=== PATIENT | female | born 1955 | race Caucasian/White ===

== ENCOUNTER 2025-03-01 20:33 | Emergency (ER) | payer OTHER, SELFPAY ==
[2025-03-01 20:34] VITALS: BP 123/86; PULSE 80; RESP 17; TEMP 36.6; O2SAT 99
[2025-03-01 20:37] VITALS: BMI 24.5
--- NOTE | 2025-03-01 22:15 | EX.ED.VISEXT ---
HPI History of Present Illness HPI Narrative: 70-year-old female history of prior kidney stones. She was on a walking trail with her daughter a dog broke loose from another person ran up to her and bit her on her left thigh. She did not fall. This occurred around 2 PM today about 8 hours ago. Has been intermittently bleeding she noticed a significant bruise and wanted evaluated. She has had bilateral knee replacements years ago. She denies any other complaints. Chief Complaint: Bite Informant: patient Occured/Mechanism Mechanism/Context: Yes injury Comment: Dog bite left medial thigh. Onset/Context/Timing Onset: Today Context: Sudden Onset Timing: Continuous Quality of Pain: Aching Current Severity: Mild Maximum Severity: Mild Narrative Narrative: 70-year-old female was walking on a walking trail when a dog broke loose from its esthetician/owner and bit her on her left side. This occurred about 8 hours ago. She is unsure of her last tetanus shot. Is not on blood thinners. Is not diabetic. No other injuries she did not fall. Tetanus Immunization: >10 years Prior similar symptoms: No Recent Illness/Hospitalization: No ROS ROS ED ROS Narrative Denies recent illness. Constitutional Constitutional ED: Denies chills or fever(s) Eyes Eyes: Denies blurry vision ENT ENT ED: Denies ear pain Cardiovascular Cardiovascular: Denies chest pain Respiratory/Chest Respiratory/Chest: Denies cough or dyspnea Gastrointestinal Gastrointestinal: Denies abdominal pain, constipation or diarrhea Genitourinary Genitourinary ED: Denies dysuria or hematuria Musculoskeletal Musculoskeletal: Denies arthralgias or back pain Integumentary Denies abscess or Abrasions Neurologic Neurologic: Denies headache(s) Psychiatric Psychiatric: Denies anxiety or depression Endocrine Endocrinology: Denies polydipsia Hematologic/Lymphatic Hematologic/Lymphatic: Denies easy bleeding, easy bruising or lymphadenopathy Allergic/Immunologic Allergic/Immunologic ED: Denies mouth swelling, tongue swelling or urticaria [facility] Medical History Anxiety Migraines Asthma Home Medications ?Medication ?Instructions ?Recorded ?Last Taken ?Type amoxicillin 875 mg-potassium 1 tab PO BID 5 days #10 tabs 03/01/25 Unknown Rx clavulanate 125 mg tablet Allergy/AdvReac Type Severity Reaction Status Date / Time No Known Allergies Allergy Verified 03/01/25 20:37 Family History no significant family his Surgical History H/O: hysterectomy Total knee replacement status Social History Smoking Status: Never smoker EXAM Physical Exam Narrative Exam Narrative: 70-year-old female sitting upright in bed clinically looks well. Looks younger than her stated age. Vital signs are stable and afebrile. No distress. Daughter at bedside. H EENT exam pupils round react to light. No trauma. Neck nontender. Back nontender. Lungs clear to auscultation bilateral. Heart regular rhythm no murmur. Chest wall and ribs nontender. Abdomen soft nontender. Moving all 4 extremities. Normal strength. Normal range of motion. Normal sensation. Specifically left hip knee and ankle nontender. Full flexion extension of the entire left leg. She has a dog bite on the anterior aspect of her medial left thigh at the distal third. It is well above the knee. There is bruising. There is mild oozing of blood. There is about a 1 inch laceration that separates. There is no signs of infection. No cellulitis. No pus or discharge. No lymphangitic streaking. No inguinal lymphadenopathy. Mildly tender to palpation. She has well-healed bilateral knee surgical scars from knee replacements years ago. Neurologically she is awake and alert. Left foot has normal dorsi plantarflexion. Normal touch sensation. Palpable DP pulse. Const Vital Signs: 03/01/25 20:34 Temperature 97.9 F Temperature Source Oral Pulse Rate 80 Respiratory Rate 17 Blood Pressure 123/86 H Blood Pressure Mean 98 Pulse Ox 99 Oxygen Delivery Method Room Air Positive well nourished and well developed; Negative for obese, cachectic, contractures or unkempt General Appearance ED: well developed and NAD; Negative for unkempt, cachectic or contractures Nutritional Appearance: Negative for cachectic or obese HEENT Reports moist mucous membranes normocephalic and atraumatic; Negative for trauma or tenderness Eyes PERRL and EOMs intact bilaterally Neck full ROM and no lymphadenopathy General: Negative for tenderness Resp normal respiratory effort and clear to auscultation bilaterally Cardio regular rate, regular rhythm, S1 normal heart sound, S2 normal heart sound and no murmurs Rate: Negative for bradycardia or tachycardic Rhythm: Negative for abnormal rhythm GI non-tender, non-distended and no masses Auscultation: normoactive bowel sounds Palpation: soft; Negative for tender or guarding Back/Spine no CVA tenderness General Back: Negative for CVA tenderness Cervical Spine: Negative for cervical spine tenderness Lumbar Spine / Lower Back: Negative for lumbar spinal tenderness Extremity normal to inspection and full ROM Extremity Narrative: Dog bite left thigh. Bruising. No infection. No cellulitis. No pus. No red streaks. Only mildly tender. Full range of motion of the left hip knee and ankle. Prior well-healed knee surgery from a total knee years ago. Small laceration. Mild oozing of blood. Left foot is neurovascularly intact with normal DP pulse. Strength and range of motion. Normal sensation. General Extremety ED: Yes tenderness Neuro oriented x3 and no sensory deficits noted Sensorium / Orientation: alert, oriented to person, oriented to place and oriented to time Motor Exam: strength 5/5 throughout Psych mental status grossly normal and thought process normal Appearance: Negative for unkempt Skin skin turgor normal Skin Narrative: Dog bite minor laceration left thigh. Lesions: no lesions Rashes: no rashes Trauma: laceration MDM MDM MDM Narrative Medical decision making narrative: 70-year-old female bit by dog 8 hours ago. Is in a bruise. Superficial laceration. We discussed treatment options. We decided not to sew it at this time. Area be cleaned. Antibiotic ointment. Dressed. Her tetanus will be updated because she is unsure of her last tetanus and she thinks it may be close to 10 years ago. She be given a dose of Augmentin here and placed on Augmentin twice daily for 5 days. She will watch for any signs of infection. Wound care and return if any problems. Discharge Plan Triage Chief Complaint: Bite ED Provider: Raulito Mcmullen Dx/Rx/DC Orders Clinical Impression: Dog bite Instructions: ED Dog Bite Prescriptions: New amoxicillin-pot clavulanate 875-125 mg tablet 1 tab PO BID 5 Days Qty: 10 0RF Primary Care Provider: Niki Patel Referrals: Niki Patel MD [Primary Care Provider] - As Needed Activity Restrictions/Additional Instructions: Antibiotic Augmentin 1 pill twice a day for 5 days. Motrin and Tylenol for pain. Ice to the area decrease pain and swelling. Clean twice daily with soap water peroxide water. Apply antibiotic ointment daily. Watch for any signs of infection such as pus worsening swelling, fever, redness or streaks if seen return. Follow-up with your doctor as needed. Print Language: Lithuanian Disposition Disposition: Home, Self Care
[2025-03-01 22:29] VITALS: BP 123/86; PULSE 80; RESP 17; TEMP 36.6; O2SAT 99
== END 2025-03-01 22:36 | disposition home or self-care (01) ==
LOC: ED 22:20
PROVIDERS: Emergency Provider Emergency Medicine; PCP Family Medicine; Visit Provider Emergency Medicine
DX: S71.152A Open bite, left thigh, initial encounter (principal); Z90.710 Acquired absence of both cervix and uterus; Z96.653 Presence of artificial knee joint, bilateral; W54.0XXA Bitten by dog, initial encounter; Y93.01 Activity, walking, marching and hiking; Y92.89 Other specified places as the place of occurrence of the external cause; Z23 Encounter for immunization
CPT/HCPCS: 90715; 96372; 99282; A4216